=== PATIENT | male | born 1930 | race Caucasian/White ===

== ENCOUNTER 2017-05-17 12:18 | Emergency (ER) | payer MEDICARE, OTHER ==
[2017-05-17 12:49] VITALS: BP 158/88
--- NOTE | 2017-05-17 12:59 | ERNOTE ---
Upper Extremity HPI - Narrative Date of Service: 05/17/17 - General Extremities Pain Location: wrist: right Time Seen by Provider: 05/17/17 12:51 Source: patient, family, RN notes reviewed Exam Limitations: dementia - Immun/Allergies/Home Medications Immunizations: IMMUNIZATION HX Immunizations Up to Date No History of Influenza Vaccine No Hx Pneumococcal Vaccination No Allergies/Adverse Reactions: Allergies Allergy/AdvReac Type Severity Reaction Status Date / Time Penicillins Allergy Verified 05/02/14 17:54 Home Medications: HOME MEDICATIONS Aspirin 325 mg PO DAILY 05/03/14 [Last Taken Unknown] - History of Present Illness Narrative: is a 87 year old male brought to the ED by his son for a wrist injury due to a fall on 05/12/17. He has been refusing to be seen for the injury for several days, but the pain is not improving so he agreed finally today. He reportedly bent over to lemon picker his phone, lost his balance and fell. He denies hitting his head or any loss of consciousness. Date (Duration): 05/12/17 Location of Incident: home Method of Injury: Reports: fell Loss of Consciousness: Reports: no loss of consciousness Associated Symptoms: Reports: loss of power (rt arm) - chronic - d/t previous shoulder injury. Denies: tingling, weakness, numbness distally Other Injuries: Reports: none Prior Treament: Denies: recently seen Review of Systems - Review of Systems Constitutional: Absent: recent illness, fever, malaise EYE: Present: no symptoms reported ENT: Present: no symptoms reported Respiratory: Absent: shortness of breath, cough Cardiology: Absent: chest pain, palpitations, syncope Gastrointestinal/Abdominal: Absent: nausea, vomiting, diarrhea Genitourinary: Present: no symptoms reported Musculoskeletal: Present: joint pain, joint swelling. Absent: back pain, neck pain Skin: Present: change in color. Absent: rash, lesions, lumps Neurological: Absent: headache, weakness, numbness, tingling Endocrine: Present: no symptoms reported Hematologic/Lymphatic: Absent: easy bruising, easy bleeding Psych: Present: no symptoms reported - Patient's Past Medical History Patient History - Medical: Anemia, Diabetes Type 2 Insulin Dependent Patient History - Cardiac/Respiratory: Coronary Heart Disease, Hypertension, Hyperlipidemia Patient History - Cancer: No Hx of Cancer Patient History - Surgical Procedures: Appendectomy, Cholecystectomy, Coronary Bypass Surgery, Pacemaker Patient History - Other: None - Family History Mother Family History - Medical: , No pertinent hx Family History - Cardiac/Respiratory: No pertinent hx Family History - Cancer: No pertinent family hx Father Family History - Medical: , Other Family History - Cardiac/Respiratory: No pertinent hx Family History - Cancer: No pertinent family hx Brother Family History - Medical: No pertinent hx Family History - Cardiac/Respiratory: History Unknown Family History - Cancer: History Unknown - Social History Living Situations: other Abuse History: No History of abuse Psych History: No pertinent hx Smoking Status: Former smoker Patient requests Smoking Cessation Consult: No Initiate information on Smoking Cessation: No Alcohol Use: none Drug Use: none - Immunizations Immunizations Up to Date: No Hx Pneumococcal Vaccination: No History of Influenza Vaccine: No Physical Exam - Physical Exam General Appearance: Present: wd/wn, alert, no apparent distress Head Exam: Present: normal inspection, no evidence of injury Respiratory: Present: no respiratory distress, normal breath sounds, no accessory muscle use, lungs clear Cardiovascular/Chest: Present: regular rate, rhythm, no murmur, normal peripheral pulses Peripheral Pulses: N=norm/S=strong/W=weak/B=bound/A=absent: Radial (R): Strong Extremity Exam: Present: decreased range of motion - Right wrist, bony tenderness - Right wrist, joint swelling - Right wrist Neurological Exam: Present: alert, normal mood/affect, no motor/sensory deficits , other - seems confused at times Skin Exam: Present: normal color, warm/dry, other - Ecchymosis to right wrist and forearm, 2 small abrasions to forearm that appear to be healing well ED Progress - Vital Signs Patient's Vital Signs:: I have reviewed the patient's vital signs. Vital Signs: Vital Signs 05/17/17 12:39 Temperature 36.6 C Pulse Rate 87 Respiratory 18 Rate Blood Pressure 158/88 O2 Sat by Pulse 98 Oximetry - X-Ray X-Ray #1 X-Ray: wrist - Right Interpretation: Interp. by me X-ray Comments: Mildly displaced fracture of distal ulna - Progress/Reassessment Chief Complaint: Fall Progress:: Improved Procedures Location: Right wrist Pre-Proc Neuro Vasc Exam: normal Hand-Made Type: ocl Splint: Ulnar gutter Alignment good: Yes Splint applied by: Nurse Post-Proc Neuro Vasc Exam: normal Complications: Pt roman procedure well Departure Clinical Impression: Ulna distal fracture Qualifiers: Encounter type: initial encounter Fracture type: closed Fracture morphology: unspecified fracture morphology Laterality: right Qualified Code(s): S52.601A - Unspecified fracture of lower end of right ulna, initial encounter for closed fracture - Departure Disposition: Home Follow Up Needed Condition: Good Instructions: Ulnar Fracture Additional Instructions: Leave splint in place Contact orthopedics on Friday regarding follow-up Referrals: Mando Sharma MD [Staff Physician] -
== END 2017-05-17 14:28 | disposition home or self-care (01) ==
LOC: ER 12:18
DX: S52.601A Unspecified fracture of lower end of right ulna, initial encounter for closed fracture (principal); S50.811A Abrasion of right forearm, initial encounter; D64.9 Anemia, unspecified; E11.9 Type 2 diabetes mellitus without complications; I25.10 Atherosclerotic heart disease of native coronary artery without angina pectoris; I10 Essential (primary) hypertension; E78.5 Hyperlipidemia, unspecified; Z95.0 Presence of cardiac pacemaker; Z79.4 Long term (current) use of insulin; Z87.891 Personal history of nicotine dependence; W19.XXXA Unspecified fall, initial encounter

== ENCOUNTER 2017-05-22 06:39 | Day surgery (SDC) | payer MEDICARE, OTHER ==
[~2017-05-22 06:39] MED LIST: RINGER'S SOLUTION,LACTATED 1,000 ML IV PRN; ceFAZolin SODIUM 1 GM VIAL IV PRN
[2017-05-22] MEDS ORDERED: RINGER'S SOLUTION,LACTATED 1,000 ML IV ONE ×2 (07:50→09:50)
--- NOTE | 2017-05-22 09:50 | OR ---
Operative Report - Dictated Report Narrative: Date: 05/22/2017 Surgeon: Seb Cardenas M.D. Tie Sawyer: Sebastian Moreland PA-C Preoperative diagnosis: Right distal ulnar shaft fracture Postoperative diagnosis: Right distal ulnar shaft fracture Operation: 1 - Open reduction internal fixation of right distal ulnar shaft fracture 2 - Intraoperative interpretation of x-rays Retained implants: [employer] 2.7 mm low-profile plate and associated screws Anesthesia: MAC plus regional Tourniquet time: 76 Minutes at 250 mmHg Estimated blood loss: Minimal Drains: None Specimen: None Complications: None Indications: is a 87-year-old male who injured the right arm after tripping over a suitcase at home and falling on an outstretched arm. They were initially treated in the ER and splinted. Seen in the clinic and discuss the options for treatment. He wished to proceed with surgical treatment. The risks and benefits alternatives were discussed. Risks of , blood clots, bleeding, infection, nerve/tendon/blood vessel injury, malunion, nonunion, failure of implants, prominent implants, delayed tendon rupture, wound complications, and need for additional procedures were discussed. Consent was obtained in the clinic. Procedure: After marking the correct extremity in the preoperative holding area, the patient was taken to the operating room. A timeout was performed. Anesthesia placed a regional block followed by general anesthetic. The arm was placed on an armboard with all bony prominences well-padded on the rest of the body. IV antibiotics consisting of 1 g of Ancef were administered. A well-padded tourniquet was applied to the upper surgical arm. The arm was pre-scrubbed with chlorhexidine and prepped and draped in a standard sterile fashion. After exsanguinating the extremity and inflating the tourniquet to 250 mmHg, a longitudinal incision was made approximately 7 cm in length over the distal ulna between the FCU and ECU muscles. This was bluntly dissected down through the subcutaneous tissue to the level of the ulna. The dorsal branch of the ulnar nerve was identified and retracted volarly and protected throughout the case. The fracture site was identified and debrided with a combination of a sharp knife and pituitary rongeur to identify our fracture leads. This was a long oblique fracture with no significant comminution. The fracture was reduced with [id number] bone reduction clamps under direct visualization and confirmed with the mini C-arm. Two 2.7 mm lag screws were placed across the fracture site from volar to dorsal in a lag by technique fashion. The clamp was removed and the fracture was noted to be stable with her like screw fixation. We then proceeded with placing a neutralization plate. A low profile 2.7 mm plate was chosen and placed over the ulnar aspect of the distal ulna. This allowed at least 2 screws distal to the fracture site. These 2 distal screws were placed in a locking fashion given the patient's age and less than optimal bone quality. 3 nonlocking screws were placed through the plate proximal to the fracture. The position of our implants as well as the final fracture reduction was confirmed with the mini C-arm. At this point we were satisfied with the fixation of the fracture and the wound was then copiously irrigated with normal saline. Subcutaneous tissue was closed with 3-0 Vicryl and the skin with 4-0 nylon. Sterile dressings consisting of Xeroform, 4 x 4, soft roll, and a well-padded single sugar tong splint was applied. The tourniquet was then let down. All sponge, sharp, and instrument counts were correct prior to closing the wounds. The patient was awoken and transferred to the postanesthesia care unit in stable condition.
[2017-05-22 11:00] VITALS: BP 150/78
--- NOTE | 2017-05-22 12:18 | OR ---
Anesthesia Procedure Note - Anesthesia Procedure Note Date of Service: 05/22/17 Narrative: Vital Signs - Last Taken Temp 36.8 C 05/22/17 11:23 Pulse 84 05/22/17 11:23 Resp 16 05/22/17 11:23 BP 150/78 05/22/17 11:23 Pulse Ox 97 05/22/17 11:23 O2 Oxygen Delivery Method Room Air 05/22/17 12:16 ANESTHESIA PROCEDURE NOTE Date of Procedure: 05/22/2017 Time of procedure: 45. Performed by: MARLON Ibrahim CRNA, MSN Veneer Supervisor: Meenakshi Chairez RN. Preprocedure diagnosis: Post right ulnar surgery pain relief. Post procedure diagnosis: Same. Procedure: Right Axillary nerve block. Indications: Post right ulnar surgery pain relief. Findings: See below. Details of the procedure: The patient was brought to OR #4 and placed in the supine position. After adequate sedation, the patient was prepped with chlorhexidine and using ultrasound guidance the right axillary artery, radial, ulnar and medial segments of the brachial plexus were identified and lidocaine 1 % was infiltrated to the skin of the intended injection site. Under ultrasound guidance the individual nerve bundles were approached with visualization of a 2inch stimulator needle, until an arm response was identified on nerve stimulator. Once the stimulator response was effective at less than 0.5 mV and greater than 0.3 mV the axillaryl nerves were surrounded with 40 mL bupivacaine 0.5% with 1-200,000 epinephrine. An axillary ring was also injected with the same solution. Please see radiology/ultrasound report for details and retained images of the procedure. EBL: 0 Fluids: N/A. Specimen: N/A. Post procedure condition: The patient tolerated the procedure well. No complications were noted. Thank you for this consultation. Finn Ricks CRNA, WOOD ENGRAVER, MSN
== END 2017-05-22 06:40 | disposition home or self-care (01) ==
LOC: AMB 06:39
PROVIDERS: ATTEND Orthopaedic Surgery
PROC: 0PSL04Z Reposition Left Ulna with Internal Fixation Device, Open Approach (ICD-10-PCS; principal; 2017-05-22)
PROC: 3E0T3BZ Introduction of Anesthetic Agent into Peripheral Nerves and Plexi, Percutaneous Approach (ICD-10-PCS; 2017-05-22)
PROC: 3E0T3BZ Introduction of Anesthetic Agent into Peripheral Nerves and Plexi, Percutaneous Approach (ICD-10-PCS; 2017-05-22)
DX: S52.201A Unspecified fracture of shaft of right ulna, initial encounter for closed fracture (principal); I10 Essential (primary) hypertension; I25.10 Atherosclerotic heart disease of native coronary artery without angina pectoris; E11.65 Type 2 diabetes mellitus with hyperglycemia; Z87.891 Personal history of nicotine dependence; Z68.23 Body mass index [BMI] 23.0-23.9, adult; W01.0XXA Fall on same level from slipping, tripping and stumbling without subsequent striking against object, initial encounter

== ENCOUNTER 2017-12-01 10:33 | Observation (INO) | payer MEDICARE, OTHER ==
--- NOTE | 2017-12-01 11:20 | ERNOTE ---
Medical Problem HPI - General Chief Complaint: General Assessment Time Seen by Provider: 12/01/17 10:55 Source: patient, family Exam Limitations: no limitations - Immun/Allergies/Home Medications Immunizations: IMMUNIZATION HX Immunizations Up to Date No History of Influenza Vaccine No Hx Pneumococcal Vaccination No Allergies/Adverse Reactions: Allergies Penicillins Allergy (Severe, Verified 12/01/17 10:41) Anaphylaxis Home Medications: HOME MEDICATIONS Aspirin 325 mg PO DAILY 05/03/14 [Last Taken Unknown] cholecalciferol (vitamin D3) 2,000 unit capsule 2,000 unit PO DAILY 11/10/17 [ Last Taken Unknown] - History of Present History Narrative: Patient has a history of CAD, HTM, DM but has refused to be on medications for years. He was seen for a fall a week ago, refused treatment for his elevated glucose. Yesterday he fell again, family who he lives with found him down in the morning , he might have been down for most of the night, new mela on the forehead. Son-in-law reports that he had increasing generalized weakness, increased urination with episodes of incontinence Review of Systems - Review of Systems Constitutional: Present: weakness. Absent: recent illness, fever ENT: Absent: nose congestion, sore throat Respiratory: Absent: shortness of breath Cardiology: Absent: chest pain Gastrointestinal/Abdominal: Absent: nausea, abdominal pain Genitourinary: Present: See HPI, frequency. Absent: dysuria Musculoskeletal: Absent: back pain, neck pain Neurological: Present: weakness - generalized. Absent: headache Medical History (Last Reviewed 12/01/17 @ 11:18 by Liz Cruz MD) B12 deficiency Onset Date: ~05/2015 Coronary artery disease Onset Date: Unknown DM type 2 (diabetes mellitus, type 2) Onset Date: ~2009 Fracture of right ulna Onset Date: ~05/19/17 History of recent fall Hypertension Onset Date: ~1984 Pacemaker Onset Date: Unknown Surgical History: Surgical History (Last Reviewed 12/01/17 @ 11:18 by Liz Cruz MD) History of appendectomy Onset Date: ~1989 Hx of CABG Onset Date: ~04/27/14 Hx of cholecystectomy Onset Date: ~1989 Pacemaker Onset Date: ~2010 S/P ORIF (open reduction internal fixation) fracture Onset Date: ~05/22/17 Family History: Family History (Last Reviewed 09/03/18 @ 10:41 by Luz Marina Amanda RN) Brother Heart disease Brother Heart disease Brother Cancer Brother Cancer Daughter Hypothyroidism Father Liver failure Mother Myocardial infarction Social History: Preferred Language Nepali Smoking Status Former smoker Abuse History No History of abuse Psych History No pertinent hx Alcohol Use none Drug Use none Physical Exam - Physical Exam General Appearance: Present: wd/wn, alert, no apparent distress Head Exam: Present: normal inspection - except superficial skin contusion on right forehead (quarter size) Eye Exam: Normal inspection: bilateral, PERRL: bilateral Ears, Nose, Throat: Present: normal pharynx Respiratory: Present: no respiratory distress, normal breath sounds, lungs clear Cardiovascular/Chest: Present: regular rate, rhythm, no murmur Gastrointestinal/Abdominal: Present: normal bowel sounds, nontender, nondistended, soft Back Exam: Present: normal inspection, no CVA tenderness, no vertebral tenderness Neurological Exam: Present: alert, oriented, normal mood/affect, no motor/ sensory deficits Skin Exam: Present: normal color, warm/dry ED Progress - Results and Orders Patient's Lab Results:: I have reviewed the patient's lab results. - Vital Signs Patient's Vital Signs:: I have reviewed the patient's vital signs. Vital Signs: Vital Signs 12/01/17 10:34 Temperature 36.5 C Pulse Rate 91 Respiratory Rate 15 Blood Pressure 170/89 H O2 Sat by Pulse Oximetry 100 - CT/Ultrasound CT/Ultrasound Narrative: CT head: no acute findings - Progress/Reassessment Chief Complaint: General Assessment Progress Note-Subjective: 12/01/17 12:15 discussed test results with patient and family, family would appreciate admission as he has been too weak to take care of himself, patient agrees to admission as well as to treatment of UTI, HTN, and DM son-in-law states that though patient is oriented here has had episodes of confusion at home, has walked around the house without underwear and was found in the kitchen at 03:00 totally naked having breakfast. 12/01/17 12:[address] Collazo, okay to admit for observation for UTI, generalized weakness, okay to start lisinopril and metformin, will not use bactrim for uti as interaction with lisinopril, will start cipro Departure Clinical Impression: Moderate dehydration, Generalized weakness DM type 2 (diabetes mellitus, type 2) Qualifiers: Diabetes mellitus terminal operator insulin use: without fpc use Diabetes mellitus complication status: with unspecified complications Qualified Code(s): E11.8 - Type 2 diabetes mellitus with unspecified complications HTN (hypertension) Qualifiers: Hypertension type: essential hypertension Qualified Code(s): I10 - Essential ( primary) hypertension UTI (urinary tract infection) Qualifiers: Urinary tract infection type: site unspecified Hematuria presence: without hematuria Qualified Code(s): N39.0 - Urinary tract infection, site not specified - Departure Disposition: Still a patient Condition: Stable
[2017-12-01 11:34] LABS: Hematocrit 42.4 % (42.0-52.0); Hemoglobin 14.2 gm/dL (13.5-18.0); Mean Corpuscular Hemoglobin 30.5 pg (27-31); Mean Corpuscular Hgb Conc 33.5 g/dl (32-36); Mean Platelet Volume 10.4 fl (8-11.3); Neutrophil # 7.5 K/mm3 (1.3-6.0); Neutrophil % 67.7 % (42-75.0); Platelet Count 399 K/mm3 (150-450); Red Blood Count 4.66 M/mm3 (4.7-6.0)
[2017-12-01 11:37] LABS: Urine Bilirubin Negative (NEGATIVE); Urine Blood 25 /ul (NEGATIVE); Urine Ketone Negative (NEGATIVE)
[2017-12-01 11:38] LABS: Urine Nitrite Negative (NEGATIVE); Urine Protein Negative (NEGATIVE); Urine Specific Gravity <=1.005 SP.GR. (1.005-1.030); Urine Urobilinogen Normal (NORMAL)
[2017-12-01 11:40] LABS: ALT 32 U/L (19-67); AST 19 U/L (0-48); Albumin * 3.1 gm/dl (3.4-5.0); Alkaline Phosphatase * 105 U/L (50-170); Anion Gap 9.4 mmol/L (6.8-13.8); BUN/Creatinine Ratio 22.5 (9.0-21.6); Bilirubin, Total 0.4 mg/dL (0.0-1.1); Blood Urea Nitrogen 27 mg/dL (6-23); CK Total * 66 U/L (0-259); Ca. Corrected For Albumin 11.6 mg/dL (8.4-10.2); Calcium * 11.2 mg/dL (7.9-10.9); Carbon Dioxide 30.8 mmol/L (24-32.6); Chloride 95 mmol/L (97-106); Glucose * 478 mg/dL (70-110); Potassium 4.2 mmol/L (3.4-4.6); Sodium 131 mmol/L (132-142); Total Protein 8.2 gm/dL (6.2-8.2)
[2017-12-01 11:46] LABS: Urine Appearance Clear (CLEAR); Urine Bacteria 2+; Urine Color Pale Yellow; Urine WBC >50 /hpf (0-5)
[2017-12-01] MEDS ORDERED: NORMAL SALINE 1,000 ML IV ONE (11:50)
[2017-12-01] MEDS ORDERED: CIPROFLOXACIN HCL 250 MG TABLET ONE (12:56)
[2017-12-01] MEDS ORDERED: LISINOPRIL 10 MG TABLET ONE (12:56)
[2017-12-01] MEDS: CIPROFLOXACIN HCL 500 MG TABLET PO SCH ×2 (12:59→21:46)
[2017-12-01] MEDS: LISINOPRIL 10 MG TABLET PO SCH (12:59)
[2017-12-01] MEDS: metFORMIN HCL 500 MG TABLET PO SCH (17:19)
--- NOTE | 2017-12-01 23:42 | HP ---
Chief Complaint - Chief Complaint Date of Service: 12/01/17 Time of Service: 18:00 Chief Complaint: Weakness, increased frequency of urination History of Present Illness: is an 87 yo male with uncontrolled diabetes and hypertension. He has been non compliant with medications in the past. The patient and family have noted increased frequency of falls over the past week and generalized weakness. He reports he always has had some difficulty walking due to an old ankle injury but this has been worse lately. He fell hitting his head and was found down by family. He was brought to the [facility] ER for evaluation. Blood sugars were elevated into the 400s, a Head CT was performed but showed no acute abnormalities, and labs and urine were evaluated. Urine suggested the presence of bacteria and he was give a dose of antibiotics. Due to his profound weakness and difficulty to get out of bed and care for himself at home medicine was called for admission. Medical History (Last Reviewed 12/01/17 @ 11:18 by Liz Cruz MD) DM type 2 (diabetes mellitus, type 2) Onset Date: ~2009 Hypertension Onset Date: ~1984 B12 deficiency Onset Date: ~05/2015 Coronary artery disease Onset Date: Unknown Fracture of right ulna Onset Date: ~05/19/17 History of recent fall Pacemaker Onset Date: Unknown Surgical History: Surgical History (Last Reviewed 12/01/17 @ 11:18 by Liz Cruz MD) History of appendectomy Onset Date: ~1989 Hx of CABG Onset Date: ~04/27/14 Hx of cholecystectomy Onset Date: ~1989 Pacemaker Onset Date: ~2010 S/P ORIF (open reduction internal fixation) fracture Onset Date: ~05/22/17 Family History: Family History (Last Reviewed 12/01/17 @ 10:41 by Luz Marina Amanda RN) Brother Heart disease Brother Heart disease Brother Cancer Brother Cancer Daughter Hypothyroidism Father Liver failure Mother Myocardial infarction Social History: Patient Lives/Resources With famil Utilized Occupation [employer], Preferred Language Serbian Do you have any hinduism or No cultural preference? Smoking Status Former smoker Have you smoked in the past 12 No months Do you dip or chew tobacco No Abuse History No History of abuse Psych History No pertinent hx Alcohol Use none Drug Use none Review Of Systems (GEN) - Review of Systems Generalized/Overall Review: Present: Weakness. Absent: Chills, Fever EENTM: Present: No Symptoms Reported Respiratory: Absent: Cough, Shortness of Breath Cardiac: Absent: Chest Pain, Edema, Palpitations Abdominal: Absent: Nausea, Vomiting Genitourinary: Present: No Symptoms Reported Musculoskeletal: Present: Joint Pain Neurological: Present: Weakness. Absent: Headache Skin: Present: No Symptoms Reported Endocrine: Present: No Symptoms Reported Immunizations: IMMUNIZATION HX Immunizations Up to Date No History of Influenza Vaccine No Hx Pneumococcal Vaccination No Allergies/Adverse Reactions: Allergies Allergy/AdvReac Type Severity Reaction Status Date / Time Penicillins Allergy Severe Anaphylaxis Verified 12/01/17 10:41 Home Medications: HOME MEDICATIONS Aspirin 325 mg PO DAILY 05/03/14 [Last Taken Unknown] cholecalciferol (vitamin D3) 2,000 unit capsule 2,000 unit PO DAILY 11/10/17 [ Last Taken Unknown] Insulin Glargine,Hum.rec.anlog [Lantus] 15 units SC DAILY #1 vial 12/03/17 [ Last Taken Unknown] Lisinopril [Zestril] 10 mg PO DAILY #30 tablet 12/03/17 [Last Taken Unknown] metFORMIN HCL [Glucophage] 500 mg PO BIDWM #60 tablet 12/03/17 [Last Taken Unknown] Exam - Exam Vital Signs: Vital Signs - Last Taken Temp 36.4 C 12/01/17 17:29 Pulse 92 12/01/17 17:29 Resp 18 12/01/17 17:29 BP 171/81 H 12/01/17 17:29 Pulse Ox 100 12/01/17 17:29 Constitutional: Present: Alert, Oriented x3, Cooperative ENT Exam: Present: hearing grossly normal Eye Exam: bilateral eye: normal inspection Respiratory: Present: lungs clear, normal breath sounds Cardiovascular/Chest: Present: regular rate, rhythm, no edema Abdomen: Present: Normal bowel sounds, soft, nontender, nondistended Skin Exam: Present: normal color, warm/dry, no cyanosis Neurologic: Present: alert, normal mood/affect, oriented x 3, motor weakness Appearance: Present: appropriate appearance, appropriate insight Eye contact: Present: cooperative, good eye contact, normal speech Diagnostic Studies: Abnormal Lab Results 12/01/17 12/01/17 12/01/17 Range/Units 11:23 11:23 11:23 WBC 11.0 H (4.0-10.5) K/mm3 RBC 4.66 L (4.7-6.0) M/mm3 Immature Gran # (Auto) 0.04 H (0.000-0.0310) K/mm3 Neutrophils # 7.5 H (1.3-6.0) K/mm3 Sodium 131 L (132-142) mmol/L Chloride 95 L (97-106) mmol/L BUN 27 H (6-23) mg/dL BUN/Creatinine Ratio 22.5 H (9.0-21.6) Random Glucose 478 H (70-110) mg/dL Calcium 11.2 H (7.9-10.9) mg/dL Calcium Adj for Albumin 11.6 H (8.4-10.2) mg/dL Albumin 3.1 L (3.4-5.0) gm/dl Urine Glucose (UA) >=1000 H (NEGATIVE) mg/dL Urine Blood 25 H (NEGATIVE) /ul Ur Leukocyte Esterase 100 H (NEGATIVE) /ul Urine RBC 5-10 H (0-5) /hpf Urine WBC >50 H (0-5) /hpf Urine Bacteria 2+ H (NONE) Laboratory Results WBC 11.0 K/mm3 (4.0-10.5) H 12/01/17 11:23 RBC 4.66 M/mm3 (4.7-6.0) L 12/01/17 11:23 Hgb 14.2 gm/dL (13.5-18.0) 12/01/17 11:23 Hct 42.4 % (42.0-52.0) 12/01/17 11:23 MCV 91.0 fl (78-100) 12/01/17 11:23 MCH 30.5 pg (27-31) 12/01/17 11:23 MCHC 33.5 g/dl (32-36) 12/01/17 11:23 RDW 12.0 % (11.5-14.0) 12/01/17 11:23 Plt Count 399 K/mm3 (150-450) 12/01/17 11:23 MPV 10.4 fl (8-11.3) 12/01/17 11:23 Immature Gran % (Auto) 0.40 % (0.001-0.429) 12/01/17 11:23 Immature Gran # (Auto) 0.04 K/mm3 (0.000-0.0310) H 12/01/17 11:23 Neutrophils % 67.7 % (42-75.0) 12/01/17 11:23 Lymphocytes % 25.8 % (20-51) 12/01/17 11:23 Monocytes % 5.7 % (0.0-9) 12/01/17 11:23 Eosinophils % 0.0 % (0.0-3.0) 12/01/17 11:23 Basophils % 0.4 % (0.0-1.0) 12/01/17 11:23 Nucleated RBC % 0.0 k/mm3 (0-1) 12/01/17 11:23 Neutrophils # 7.5 K/mm3 (1.3-6.0) H 12/01/17 11:23 Lymphocytes # 2.83 k/mm3 (1.5-3.5) 12/01/17 11:23 Monocytes # 0.6 k/mm3 (0.0-1.0) 12/01/17 11:23 Eosinophils # 0.0 k/mm3 (0.0-0.7) 12/01/17 11:23 Absolute Basophils 0.0 k/mm3 (0.0-0.1) 12/01/17 11:23 VBG pH 7.337 (7.32-7.43) 12/01/17 11:23 Sodium 131 mmol/L (132-142) L 12/01/17 11:23 Plasma Sodium 137 mmol/L (130-142) 12/01/17 11:23 Potassium 4.2 mmol/L (3.4-4.6) 12/01/17 11:23 Chloride 95 mmol/L (97-106) L 12/01/17 11:23 Carbon Dioxide 30.8 mmol/L (24-32.6) 12/01/17 11:23 Anion Gap 9.4 mmol/L (6.8-13.8) 12/01/17 11:23 BUN 27 mg/dL (6-23) H 12/01/17 11:23 Creatinine 1.20 mg/dL (0.4-1.4) 12/01/17 11:23 Est GFR (Non-Af Amer) 61 mL/min (60-130) D 12/01/17 11:23 BUN/Creatinine Ratio 22.5 (9.0-21.6) H 12/01/17 11:23 Random Glucose 478 mg/dL (70-110) H 12/01/17 11:23 Calcium 11.2 mg/dL (7.9-10.9) H 12/01/17 11:23 Calcium Adj for Albumin 11.6 mg/dL (8.4-10.2) H 12/01/17 11:23 Total Bilirubin 0.4 mg/dL (0.0-1.1) 12/01/17 11:23 AST 19 U/L (0-48) 12/01/17 11:23 ALT 32 U/L (19-67) 12/01/17 11:23 Alkaline Phosphatase 105 U/L (50-170) 12/01/17 11:23 Creatine Kinase 66 U/L (0-259) 12/01/17 11:23 Total Protein 8.2 gm/dL (6.2-8.2) 12/01/17 11:23 Albumin 3.1 gm/dl (3.4-5.0) L 12/01/17 11:23 Urine Color Pale yellow 12/01/17 11:23 Urine Appearance Clear (CLEAR) 12/01/17 11:23 Urine pH 6.0 pH (5.0-7.0) 12/01/17 11:23 Ur Specific [place] <=1.005 SP.GR. (1.005-1.030) 12/01/17 11:23 Urine Protein Negative mg/dL (NEGATIVE) 12/01/17 11:23 Urine Glucose (UA) >=1000 mg/dL (NEGATIVE) H 12/01/17 11:23 Urine Ketones Negative mg/dL (NEGATIVE) 12/01/17 11:23 Urine Blood 25 /ul (NEGATIVE) H 12/01/17 11:23 Urine Nitrate Negative (NEGATIVE) 12/01/17 11:23 Urine Bilirubin Negative mg/dl (NEGATIVE) 12/01/17 11:23 Urine Urobilinogen Normal EU/dl (NORMAL) 12/01/17 11:23 Ur Leukocyte Esterase 100 /ul (NEGATIVE) H 12/01/17 11:23 Urine RBC 5-10 /hpf (0-5) H 12/01/17 11:23 Urine WBC >50 /hpf (0-5) H 12/01/17 11:23 Ur Epithelial Cells 0-5 /hpf (0-5) 12/01/17 11:23 Urine Bacteria 2+ (NONE) H 12/01/17 11:23 Urine Culture Comments Culture to follow 12/01/17 11:23 Serum Ketones Negative (NEGATIVE) 12/01/17 11:23 Assessment/Plan - Narrative Narrative: is an 87 yo male with generalized weakness and possible UTI based on UA. Will start on Cipro and consult PT for evaluation. Will admit to observation at this time. He has uncontrolled hypertension and diabetes. He agrees to take oral medication at this time but declines insulin. Will start lisinopril and metformin as he was supposed to be taking, but hasn't. Will monitor blood sugars and blood pressure. Will evaluate weakness, which may be progressively worsening. - Assessment/Plan (1) UTI (urinary tract infection) Problem: Acute Qualifiers: Urinary tract infection type: site unspecified Hematuria presence: without hematuria Qualified Code(s): N39.0 - Urinary tract infection, site not specified (2) Generalized weakness Problem: Acute
--- NOTE | 2017-12-02 07:52 | PN ---
Subjective - Date and Time Seen Date: 12/02/17 Time: 07:41 Subjective Narrative: Pt reports feeling great and asking when he can go home. Denies CP, SOB, nausea , vomiting, diarrhea, dysuria. When asked what would happen if he fell at home again, he states he would "bounce back." He states he is going home today. Still declines insulin. Objective - Review of Systems Generalized/Overall Review: Denies: Weakness Respiratory: Denies: Shortness of Breath Cardiac: Denies: Chest Pain Abdominal: Denies: Nausea, Vomiting, Diarrhea Genitourinary Symptoms: Denies: Frequency, Dysuria - Vitals Vitals: Last Vital Signs Temp 36.9 C 12/02/17 06:59 Pulse 84 12/02/17 06:59 Resp 18 12/02/17 06:59 BP 153/85 H 12/02/17 06:59 Pulse Ox 98 12/02/17 06:59 - Abnormal Lab Findings Abnormal Lab Findings: Abnormal Lab Results 12/01/17 12/01/17 12/01/17 Range/Units 11:23 11:23 11:23 WBC 11.0 H (4.0-10.5) K/mm3 RBC 4.66 L (4.7-6.0) M/mm3 Immature Gran # (Auto) 0.04 H (0.000-0.0310) K/mm3 Neutrophils # 7.5 H (1.3-6.0) K/mm3 Sodium 131 L (132-142) mmol/L Chloride 95 L (97-106) mmol/L BUN 27 H (6-23) mg/dL BUN/Creatinine Ratio 22.5 H (9.0-21.6) Random Glucose 478 H (70-110) mg/dL Calcium 11.2 H (7.9-10.9) mg/dL Calcium Adj for Albumin 11.6 H (8.4-10.2) mg/dL Albumin 3.1 L (3.4-5.0) gm/dl Urine Glucose (UA) >=1000 H (NEGATIVE) mg/dL Urine Blood 25 H (NEGATIVE) /ul Ur Leukocyte Esterase 100 H (NEGATIVE) /ul Urine RBC 5-10 H (0-5) /hpf Urine WBC >50 H (0-5) /hpf Urine Bacteria 2+ H (NONE) - Exam Constitutional: Present: Oriented x3, Cooperative, No distress Respiratory: Present: normal breath sounds, no respiratory distress Cardiovascular/Chest: Present: regular rate, rhythm Abdomen: Present: soft, nontender Extremity: Present: no pedal edema Skin Exam: Present: other - Mild 2 cm abrasion of left parietal region Assessment/Plan - Problems/Diagnosis (1) Generalized weakness Problem: Acute Narrative: Improved, but will have PT evaluate for discharge recommendations. Will need to discuss his status with his POA. Attempted to expand his home health services last week to offer more care in the home. If the family is comfortable taking him home, will discharge today. Mr. Sarmiento is alert and oriented to self, time, and place, but displays poor judgment. If family is not comfortable, will need to discuss placement options. He did have bacteria in his urine, and culture is pending. Continue cipro. (2) Moderate dehydration Problem: Resolved Narrative: Resolved. Likely secondary to elevated glucose, but patient declines insulin. 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 Will need to talk with patient's POA, son-in-law Willie, and see if they were able to get a glucometer at home. He is agreeing to continue metformin. (4) HTN (hypertension) Problem: Chronic Narrative: Continue metformin.
[2017-12-02] MEDS: metFORMIN HCL 500 MG TABLET PO SCH ×2 (09:17→16:20)
[2017-12-02] MEDS: CIPROFLOXACIN HCL 500 MG TABLET PO SCH ×2 (09:18→20:41)
[2017-12-02] MEDS: LISINOPRIL 10 MG TABLET PO SCH (09:18)
[2017-12-02 10:11] LABS: Anion Gap 6.9 mmol/L (6.8-13.8); BUN/Creatinine Ratio 21.4 (9.0-21.6); Calcium * 10.1 mg/dL (7.9-10.9); Carbon Dioxide 30.4 mmol/L (24-32.6); Estimated Creat Clear 52.9; Potassium 4.3 mmol/L (3.4-4.6)
[2017-12-02] MEDS: INSULIN GLARGINE,HUM.REC.ANLOG 100 UNITS/ML VIAL SC SCH (13:26)
[2017-12-02] MEDS: INSULIN LISPRO 100 UNITS/ML VIAL SC SCH (16:29)
[2017-12-03 06:04] LABS: Anion Gap 6.6 mmol/L (6.8-13.8); BUN/Creatinine Ratio 25.8 (9.0-21.6); Calcium * 9.9 mg/dL (7.9-10.9); Carbon Dioxide 27.9 mmol/L (24-32.6); Estimated Creat Clear 61.1; Potassium 3.5 mmol/L (3.4-4.6)
[2017-12-03] MEDS: INSULIN LISPRO 100 UNITS/ML VIAL SC SCH ×3 (06:41→17:32)
--- NOTE | 2017-12-03 07:12 | PN ---
Subjective - Date and Time Seen Date: 12/03/17 Time: 06:58 Subjective Narrative: Patient reports feeling fine this morning, and is asking for breakfast. Denies CP, SOB, N/V/D, headache. He was unsteady on his feet yesterday, but no falls. Chronic leg pain persists, which he states has been present throughout his life. Objective - Review of Systems Generalized/Overall Review: Reports: No Symptoms Reported Respiratory: Denies: Cough, Shortness of Breath Cardiac: Denies: Chest Pain, Edema Abdominal: Denies: Nausea, Vomiting, Diarrhea Musculoskeletal Complaints: Reports: Other - leg pain Neurological: Denies: Headache - Vitals Vitals: Last Vital Signs Temp 36.7 C 12/03/17 06:35 Pulse 87 12/03/17 06:35 Resp 17 12/03/17 06:35 BP 154/75 H 12/03/17 06:35 Pulse Ox 94 12/03/17 06:35 - Abnormal Lab Findings Abnormal Lab Findings: Abnormal Lab Results 12/02/17 12/03/17 Range/Units 09:47 05:55 Sodium 127 L 130 L (132-142) mmol/L Chloride 94 L (97-106) mmol/L Anion Gap 6.6 L (6.8-13.8) mmol/L BUN 24 H 25 H (6-23) mg/dL BUN/Creatinine Ratio 25.8 H (9.0-21.6) Random Glucose 486 H 228 H D (70-110) mg/dL - Exam Constitutional: Present: Alert, Oriented x3, Cooperative, No distress Respiratory: Present: normal breath sounds, no respiratory distress. Absent: rales, No wheezing Cardiovascular/Chest: Present: normal peripheral pulses, regular rate, rhythm Abdomen: Present: soft, nontender Extremity: Absent: lower extremity edema Neurologic: Present: normal mood/affect Eye contact: Present: cooperative, good eye contact Assessment/Plan - Problems/Diagnosis (1) DM type 2 (diabetes mellitus, type 2) Problem: Chronic Qualifiers: Diabetes mellitus detention insulin use: without superintendent terminal use Diabetes mellitus complication status: without complication Qualified Code(s): E11.9 - Type 2 diabetes mellitus without complications Narrative: Patient agreed to starting insulin yesterday. 10U lantus was given yesterday afternoon, and low dose sliding scale insulin added yesterday evening. Improvement in blood sugar today. Placement pending. If he were to leave today , will continue long acting insulin only for simplicity, but will continue SSI during hospitalization. Continue metformin. (2) Generalized weakness Problem: Acute Narrative: Likely secondary to deconditioning and hyperglycemia. UA abnormal initially in the ED, but negative culture. Cipro has been discontinued, which he received for 2 days. Continue PT. He has agreed to rehab/custodial placement after discharge. He is a significant fall risk, having had two falls that resulted in ED visits within one week. Family is no longer able to care for him at home. Per family, he also has underlying dementia. He has shown poor judgment, but this was while his blood glucose was elevated. Will need to continue to assess for possible dementia. (3) HTN (hypertension) Problem: Chronic Narrative: Patient had declined antihypertensives prior to admission, but is agreeing to take lisinopril currently, and will continue. Currently fluctuating, but within acceptable limits. (4) Moderate dehydration Problem: Resolved
[2017-12-03] MEDS: INSULIN GLARGINE,HUM.REC.ANLOG 100 UNITS/ML VIAL SC SCH (08:10)
[2017-12-03] MEDS: metFORMIN HCL 500 MG TABLET PO SCH ×2 (08:10→17:32)
[2017-12-03] MEDS: LISINOPRIL 10 MG TABLET PO SCH (08:10)
--- NOTE | 2017-12-03 14:26 | DS ---
(1) DM type 2 (diabetes mellitus, type 2) Problem: Chronic Qualifiers: Diabetes mellitus care home insulin use: without oil heaterman use Diabetes mellitus complication status: with hyperglycemia Qualified Code(s): E11.65 - Type 2 diabetes mellitus with hyperglycemia (2) Generalized weakness Problem: Acute (3) HTN (hypertension) Problem: Chronic (4) Moderate dehydration Problem: Resolved Description of Stay: Patient admitted after second ED visit in one week for falls. He had previously declined all medications, but during hospitalization, agreed to starting insulin, metformin, and lisinopril. Extensive discussions with family members reveal he has declined over the last few weeks with increased confusion at home, to the level his family no longer feels comfortable caring for him. He agreed to go to a facility to gain strength after discharge. He was given cipro for 2 days after an abnormal UA, but urine culture was negative and this was discontinued. BP was elevated and lisinopril was started, with improvements in his BP. Procedures Performed: none Results and Findings: Lab Pending Results 12/01/17 11:23: WBC 11.0 H, RBC 4.66 L, Hgb 14.2, Hct 42.4, MCV 91.0, MCH 30.5, MCHC 33.5, RDW 12.0, Plt Count 399, MPV 10.4, Immature Gran % (Auto) 0.40, Immature Gran # (Auto) 0.04 H, Neutrophils % 67.7, Lymphocytes % 25.8, Monocytes % 5.7, Eosinophils % 0.0, Basophils % 0.4, Nucleated RBC % 0.0, Neutrophils # 7.5 H, Lymphocytes # 2.83, Monocytes # 0.6, Eosinophils # 0.0, Absolute Basophils 0.0 12/01/17 11:23: VBG pH 7.337 12/01/17 11:23: Sodium 131 L, Plasma Sodium 137, Potassium 4.2, Chloride 95 L, Carbon Dioxide 30.8, Anion Gap 9.4, BUN 27 H, Creatinine 1.20, Est GFR (Non-Af Amer) 61 D, BUN/Creatinine Ratio 22.5 H, Random Glucose 478 H, Calcium 11.2 H, Calcium Adj for Albumin 11.6 H, Total Bilirubin 0.4, AST 19, ALT 32, Alkaline Phosphatase 105, Creatine Kinase 66, Total Protein 8.2, Albumin 3.1 L, Serum Ketones Negative 12/01/17 11:23: Urine Color Pale yellow, Urine Appearance Clear, Urine pH 6.0, Ur Specific [place] <=1.005, Urine Protein Negative, Urine Glucose (UA) >=1000 H , Urine Ketones Negative, Urine Blood 25 H, Urine Nitrate Negative, Urine Bilirubin Negative, Urine Urobilinogen Normal, Ur Leukocyte Esterase 100 H, Urine RBC 5-10 H, Urine WBC >50 H, Ur Epithelial Cells 0-5, Urine Bacteria 2+ H , Urine Culture Comments Culture to follow 12/02/17 09:47: Sodium 127 L, Plasma Sodium 133, Potassium 4.3, Chloride 94 L, Carbon Dioxide 30.4, Anion Gap 6.9, BUN 24 H, Creatinine 1.12, Est GFR (Non-Af Amer) 66, BUN/Creatinine Ratio 21.4, Random Glucose 486 H, Calcium 10.1 12/03/17 05:55: Sodium 130 L, Plasma Sodium 132, Potassium 3.5, Chloride 99, Carbon Dioxide 27.9, Anion Gap 6.6 L, BUN 25 H, Creatinine 0.97, Est GFR (Non- Af Amer) 78, BUN/Creatinine Ratio 25.8 H, Random Glucose 228 H D, Calcium 9.9 Discharge Location: [facility] Disposition: Intermediate Care Facility ICF Condition: Stable Level of Care: ICF Discharge Activity: Activity as tolerated Discharge Diet: Consistent carbs Care Home Therapy: Physicial Therapy, Occupation Therapy Referrals: Juliette Shell DO [Primary Care Provider] - Prescriptions (Any new or edited meds): Insulin Glargine,Hum.rec.anlog [Lantus] 15 units SC DAILY #1 vial Lisinopril [Zestril] 10 mg PO DAILY #30 tablet metFORMIN HCL [Glucophage] 500 mg PO BIDWM #60 tablet Complete Home Medications List: Complete Home Medication List: Aspirin 325 mg PO DAILY 05/03/14 cholecalciferol (vitamin D3) 2,000 unit capsule 2,000 unit PO DAILY 11/10/17 Insulin Glargine,Hum.rec.anlog [Lantus] 15 units SC DAILY #1 vial 12/03/17 Lisinopril [Zestril] 10 mg PO DAILY #30 tablet 12/03/17 metFORMIN HCL [Glucophage] 500 mg PO BIDWM #60 tablet 12/03/17
--- NOTE | 2017-12-04 05:20 | PN ---
Progess Note - Interim Date: 12/04/17 Time: 05:11 Narrative: 12/04/17 05:12 S: Patient was up several times overnight to urinate and attempt to have a bowel movement. He is having some constipation, but declines everything except fruit. Has continued to allow sliding scale insulin to be given, and received 10 U yesterday. O: BP 127/73, HR 88, RR18, O2 94% RA, Temp 36.7 PE: Const: NAD CV: 2/6 systolic murmur, regular rate and rhyhthm Resp: CTAB, no increased effort Extremities: No edema A/P: Weakness: Likely secondary to deconditioning and uncontrolled diabetes. His family is no longer able to care for him at home, and he has been accepted to [place] [place] to discharge there today. Uncontrolled diabetes: Better glucose control with the addition of insulin two days prior. Will discharge with 15 U lantus daily. He was administered 10 U lantus, and 13 U humalog via sliding scale yesterday. Juliette Shell, DO 12/04/17 0519
[2017-12-04] MEDS: INSULIN LISPRO 100 UNITS/ML VIAL SC SCH (06:35)
[2017-12-04] MEDS: LISINOPRIL 10 MG TABLET PO SCH (08:38)
[2017-12-04] MEDS: metFORMIN HCL 500 MG TABLET PO SCH (08:38)
[2017-12-04] MEDS: INSULIN GLARGINE,HUM.REC.ANLOG 100 UNITS/ML VIAL SC SCH (08:40)
[2017-12-04 09:57] VITALS: BP 150/57
== END 2017-12-04 10:28 ==
LOC: MS 10:33 → ER 10:33 → MS 13:10
PROVIDERS: ADMIT Family Medicine; ATTEND Family Medicine
CPT/HCPCS: 36415; 70450; 80048; 80053; 81001; 82009; 82550; 82800; 85025; 87086; 96360; 96361; 96372; 97110; 97116; 97161; 99285; G0378; G8978; G8979; G8980